=== PATIENT | female | born 1995 ===

== ENCOUNTER 2022-02-06 03:10 | Emergency (ER) | payer OTHER ==
[~2022-02-06] VITALS: Ht 170.2 cm; Wt 74.8 kg
[~2022-02-06 03:10] MED LIST: FLOVENT 110MCG7.9 GM IH; PROVENTIL3 ML/2.5 M IH; SINGULAIR 10MG10 MG PO; ZYNCOF 20-400120 ML PO
[2022-02-06] MEDS ORDERED: TAMS0.4C PO (11:12)
[2022-02-06] MEDS ORDERED: CIPRO500 MG PO (11:12)
== END 2022-02-06 12:03 | disposition home or self-care (01) ==
LOC: ER 03:10
DX: N39.0 Urinary tract infection, site not specified (principal); N20.0 Calculus of kidney